=== PATIENT | female | born 1970 | race Caucasian/White ===

== ENCOUNTER 2017-11-16 23:20 | Emergency (ER) | payer MEDICAID ==
[~2017-11-16] VITALS: Ht 157.5 cm; Wt 86.2 kg
[2017-11-16 23:28] VITALS: BP 130/80
[2017-11-17] MEDS ORDERED: ONDANSETRON 4 MG TAB.RAPDIS PO ONE
[2017-11-17] MEDS ORDERED: MAG HYDROX/AL HYDROX/SIMETH 30 ML UDC PO ONE
[2017-11-17] MEDS ORDERED: MAG HYDROX/AL HYDROX/SIMETH 30 ML UDC ONE (00:05)
[2017-11-17] MEDS ORDERED: ONDANSETRON 4 MG TAB.RAPDIS ONE (00:05)
== END 2017-11-17 00:20 | disposition home or self-care (01) ==
LOC: ER 23:22
DX: K52.9 Noninfective gastroenteritis and colitis, unspecified (principal)
CPT/HCPCS: A4606; Q0162; Z7610

== ENCOUNTER 2024-09-29 22:14 | Emergency (ER) | payer MEDICARE, MEDICAID ==
[~2024-09-29] VITALS: Ht 160 cm; Wt 81.6 kg
[2024-09-30] MEDS ORDERED: NAPR-1009 PO (02:31)
[2024-09-30 03:01] VITALS: BP 125/72; TEMP 98.4; O2SAT 98
== END 2024-09-30 03:02 | disposition home or self-care (01) ==
LOC: ER 22:41
DX: S16.1XXA Strain of muscle, fascia and tendon at neck level, initial encounter (principal); E07.9 Disorder of thyroid, unspecified; M25.511 Pain in right shoulder; M79.604 Pain in right leg; V43.62XA Car passenger injured in collision with other type car in traffic accident, initial encounter; Y93.89 Activity, other specified; Y92.488 Other paved roadways as the place of occurrence of the external cause; Y99.8 Other external cause status
CPT/HCPCS: 70450-TC; 72125-TC; 73060-TC; 73090-TC; 73130-TC; 73552; 73590-TC; 73630-TC